=== PATIENT | male | born 1970 | race Caucasian/White ===

== ENCOUNTER 2022-11-06 03:12 | Emergency (ER) | payer OTHER, BC, SELFPAY ==
[2022-11-06 03:13] VITALS: BP 130/70; PULSE 103; RESP 18; TEMP 37; O2SAT 95
[2022-11-06 03:23] VITALS: BMI 36.9
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
[2022-11-06 03:43] LABS: Alanine Aminotransferase 42 U/L (12-78); Albumin Level 4.4 g/dl (3.5-5.0); Albumin/Globulin Ratio 1.4 (1.1-1.8); Alkaline Phosphatase 108 U/L (38-126); Aspartate Amino Transferase 35 U/L (17-59); Basophils # 0.1 K/mm3 (0-0.2); Bilirubin,Total 0.4 mg/dl (0.2-1.3); Blood Urea Nitrogen 10 mg/dl (9-20); Calcium 9.3 mg/dl (8.4-10.2); Carbon Dioxide 27 mmol/L (22.0-30.0); Chloride 105 mmol/L (98-107); Creatinine Clearance Estimated 161 mL/min (50-200); Estimated Glomerular Filt Rate 88 ml/min (>60); GFR (African American) 107 ML/MIN (>60); Globulin 3.1 g/dL (1.3-3.2); Glucose 172 mg/dl (74-100); Mean Platelet Volume 7.5 fl (7.4-10.4); POC Glucose,Bedside 170 (70-110); Potassium 3.6 mmoL/L (3.5-5.1); Red Cell Distribution Width 13.6 % (11.5-17.5); Total Protein,Serum 7.5 g/dl (6.3-8.2)
[2022-11-06 03:44] LABS: Anion Gap 11.6 mEq/L (5-15); Basophils % 0.7 % (0.1-2.0); Eosinophils # 0.3 K/mm3 (0.0-0.4); Eosinophils % 3.6 % (0.1-12.0); Hematocrit 47.5 % (42.0-52.0); Hemoglobin 16.2 g/dL (14.1-18.0); Lymphocytes # 1.5 K/mm3 (0.7-4.5); Lymphocytes % 16.9 % (10-50); Mean Corpuscular HGB Conc 34.1 g/dL (31.8-35.4); Mean Corpuscular Hemoglobin 32.5 pg (27.0-31.2); Mean Corpuscular Volume 95.2 fl (80-94); Monocytes # 0.6 K/mm3 (0.1-1.0); Monocytes % 6.5 % (1.7-9.3); Neutrophils # 6.4 K/mm3 (1.8-7.8); Neutrophils % 72.3 % (37.0-80.0); Platelet Count 192 K/mm3 (142-424); Red Blood Count 4.99 M/mm3 (4.60-6.20); Sodium 140 mmol/L (136-145); White Blood Count 8.9 K/mm3 (4.8-10.8)
--- NOTE | 2022-11-06 03:47 | PC.NURSE ---
verbal order accepted for 4 mg Morphine PRN
[2022-11-06 07:00] VITALS: BP 109/68; PULSE 86; RESP 18; TEMP 37; O2SAT 95
== END 2022-11-06 07:11 | disposition home or self-care (01) ==
PROVIDERS: Emergency Provider Emergency Medicine; PCP General Practice
DX: S39.012A Strain of muscle, fascia and tendon of lower back, initial encounter (principal); E11.9 Type 2 diabetes mellitus without complications; I10 Essential (primary) hypertension; V89.2XXA Person injured in unspecified motor-vehicle accident, traffic, initial encounter
CPT/HCPCS: 36415; 70450; 70496; 70498; 71045; 71275; 72125; 72128; 72131; 72170; 73030; 74174; 80053; 82962; 85025; 86850; 96374; 96375; 99285; Q9967

== ENCOUNTER 2024-06-28 17:14 | Emergency (ER) | payer BC, SELFPAY ==
[2024-06-28 17:15] VITALS: BP 138/89; PULSE 87; RESP 16; TEMP 36.8; O2SAT 96; BMI 34.2
--- NOTE | 2024-06-28 17:27 | ECG_ITS ---
APPROVED REPORT Exam: Resting ECG HR:78 bpm ECG Measurements Heart Rate 78 AXES IL 163 P 42 QRSd 104 QRS 121 QT 350 T 58 QTc 384 Conclusion SINUS RHYTHM POSSIBLE RIGHT VENTRICULAR HYPERTROPHY [SOME/ALL OF: PROMINENT R IN V1, LATE TRANSITION, RAD, YUSUF, SSS] ABNORMAL ECG Electronically signed by : CLAY SIMPSON, 06/28/2024 23:55:54
--- NOTE | 2024-06-28 17:40 | XR_ITS ---
PROCEDURE INFORMATION: Exam: XR Chest Exam date and time: 06/28/2024 5:37 PM Age: 53 years old Clinical indication: Shortness of breath and other: Palpitations; Additional info: Palpitations, SOA TECHNIQUE: Imaging protocol: Radiologic exam of the chest. Views: 2 views. COMPARISON: CT ANGIO CHEST 11/06/2022 4:37 AM FINDINGS: Lungs: No consolidation. Minimal left lower lung atelectasis and/or scarring. Pleural spaces: No pleural effusion. No pneumothorax. Heart/Mediastinum: No cardiomegaly. Bones/joints: Unremarkable. IMPRESSION: No acute pulmonary findings.
[2024-06-28 17:48] LABS: Basophils % 0.6 % (0.1-2.0); Eosinophils # 0.2 K/mm3 (0.0-0.4); Eosinophils % 3.1 % (0.1-12.0); Hematocrit 47.6 % (42.0-52.0); Hemoglobin 16.5 g/dL (14.1-18.0); Lymphocytes # 1.9 K/mm3 (0.7-4.5); Lymphocytes % 27.5 % (10-50); Mean Corpuscular HGB Conc 34.7 g/dL (31.8-35.4); Mean Corpuscular Hemoglobin 33.7 pg (27.0-31.2); Mean Corpuscular Volume 97.1 fl (80-94); Mean Platelet Volume 7.8 fl (7.4-10.4); Monocytes # 0.5 K/mm3 (0.1-1.0); Monocytes % 6.8 % (1.7-9.3); Neutrophils # 4.3 K/mm3 (1.8-7.8); Platelet Count 205 K/mm3 (142-424); Red Cell Distribution Width 13.8 % (11.5-17.5)
--- NOTE | 2024-06-28 17:52 | ED_ITS ---
Discharge Plan Disposition Patient Disposition: Home, Self-Care Condition: Good Prescriptions Prescriptions: No Action Ozempic 2 mg/dose (8 mg/3 mL) pen injector SQ Patient Comments: INJECT TWO (2) MG EVERY WEEK BY SUBCUTANEOUS ROUTE FOR 28 DAYS. Jardiance 10 mg tablet 10 mg PO DAILY Patient Comments: TAKE ONE TABLET BY MOUTH DAILY metformin 1,000 mg tablet 1,000 mg PO BID Patient Comments: TAKE ONE TABLET BY MOUTH TWICE A DAY WITH MEALS amlodipine 10 mg tablet 10 mg PO DAILY Patient Comments: TAKE ONE (1) TABLET BY MOUTH EVERY NIGHT AT BEDTIME atorvastatin 80 mg tablet 80 mg PO HS Patient Comments: TAKE ONE TABLET BY MOUTH DAILY IN THE EVENING lisinopril 40 mg tablet 40 mg PO DAILY Patient Comments: TAKE ONE (1) TABLET EVERY DAY BY ORAL ROUTE FOR 90 DAYS. meloxicam 15 mg tablet 15 mg PO DAILY Patient Comments: TAKE ONE (1) TABLET EVERY DAY BY ORAL ROUTE FOR 30 DAYS. tizanidine [Zanaflex] 4 mg capsule 4 mg PO Q8H PRN (Reason: muscle spasticity) Qty: 30 3RF prednisone 50 mg tablet 50 mg PO DAILY Qty: 3 0RF Referrals Follow up/Referrals: Chris Solorzano MD [Primary Care Provider] - See instructions Jann Fletcher MD [Staff Physician] - See instructions Activity Restrictions/Add. Instructions Additional Instructions/Restrictions: Please follow-up closely with your primary care provider as well as with cardiology. They may determine that you should wear a Holter monitor. Return to the emergency department for new or worsening symptoms. Clinical Impressions Clinical Impression: Heart palpitations Instructions Patient Instructions: DI for Atypical Chest Pain, DI for Palpitations Print Language Print Language: Croatian Discharge ED Provider: Serina Elizabeth General Adult HPI General Chief complaint: Arrhythmia/Palpitations Stated complaint: SOA,palpatations,headache Time Seen by Provider: 06/28/24 17:20 Mode of Arrival: Ambulatory Source of Information: Patient Limitations: No Limitations Description of Symptoms (Recalled from ER Triage Doc. by RN): States he was going to the dentist when his heart began to palpatate and feeling funny. Now states that he just has a headache and his heart is fluttering. Does state that he had a little bit of shortness of breath when this started as well. History of Present Illness HPI narrative: This patient is a 53-year-old male with a history of hypertension, hyperlipidemia, type 2 diabetes on Ozempic presenting to the emergency department for evaluation. He states that when he was at the dentist prior to arrival, he was sitting in the waiting room when his heart started racing. He was having palpitations and feeling very funny. He states he felt lightheaded and short of breath, and then he developed a headache. He states he still feels a heart fluttering, but the shortness of breath has improved. His headache is also going away. He denies any visual disturbance, unilateral numbness or tingling, weakness, chest pain, abdominal pain, nausea, vomiting, change in bowel movements, or other concerns associated with this. No calf pain or swelling. He also denies feeling anxious or stressed. He denies experiencing anything like this in the past. Related Data Home Medications ?Medication ?Instructions ?Recorded ?Confirmed amlodipine 10 mg tablet 10 mg PO DAILY 04/30/24 04/30/24 atorvastatin 80 mg tablet 80 mg PO HS 04/30/24 04/30/24 empagliflozin 10 mg tablet 10 mg PO DAILY 04/30/24 04/30/24 (Jardiance) lisinopril 40 mg tablet 40 mg PO DAILY 04/30/24 04/30/24 meloxicam 15 mg tablet 15 mg PO DAILY 04/30/24 04/30/24 metformin 1,000 mg tablet 1,000 mg PO BID 04/30/24 04/30/24 semaglutide 2 mg/dose (8 mg/3 mL) mg SQ 04/30/24 04/30/24 subcutaneous pen injector (Ozempic) Previous Rx's ?Medication ?Instructions ?Recorded tizanidine 4 mg capsule (Zanaflex) 4 mg PO Q8H PRN muscle spasticity 05/01/24 #30 caps prednisone 50 mg tablet 50 mg PO DAILY #3 tabs 06/04/24 Allergies Allergy/AdvReac Type Severity Reaction Status Date / Time No Known Allergies Allergy Verified 04/30/24 15:34 [facility] Disclaimer: The information contained in this section may have been updated after the patient was seen, as this information can be updated by other users. Medical History Diabetes mellitus Hyperlipidemia Hypertension Surgical History H/O: vasectomy Social History Smoking Status: Never smoker alcohol intake: never current occupational status: employed Travel in the last 8 weeks: None ROS Obtained: Yes All systems reviewed & no additional complaints except as documented Physical Exam General General appearance: alert and in no apparent distress Head Head exam: atraumatic and normocephalic Eye Eye exam: Present normal appearance, PERRL and EOMI ENT ENT exam: Present normal exam, normal oropharynx, mucous membranes moist and normal external ear exam Neck Neck exam: Present normal inspection, full ROM and trachea midline; Absent tenderness Chest Chest inspection: Present normal inspection and symmetric chest wall rise; Absent tenderness Respiratory Respiratory exam: Present normal lung sounds bilaterally; Absent respiratory distress, wheezes, stridor or accessory muscle use Cardiovascular Cardiovascular exam: Present regular rate and normal rhythm Abdominal Exam Abdominal exam: Present soft; Absent distention, tenderness or guarding Extremities Exam Extremities exam: Present normal inspection, full ROM and normal capillary refill; Absent tenderness or edema Back Exam Back exam: Present normal inspection and full ROM; Absent tenderness Neurological Exam Neurological exam: Present alert, oriented X3, CN II-XII intact and normal gait; Absent motor sensory deficit Psychiatric Psychiatric exam: Present normal affect and normal mood Skin Skin exam: Present warm and dry Medical Decision Making Medical Records Medical records reviewed: Yes I reviewed the patient's medical records. Jorge Inquiry Pt receiving controlled substance: No Vital Signs: 06/28/24 17:15 06/28/24 18:00 06/28/24 18:30 Temperature 98.2 F Temperature Source Oral Pulse Rate 82 78 Pulse Rate [Radial] 87 Respiratory Rate 16 21 15 Blood Pressure 133/82 128/84 Blood Pressure [Right Arm] 138/89 Blood Pressure Mean 99 99 Blood Pressure Mean [Right Arm] 105 Blood Pressure Source Blood Pressure Source [Right Arm] Automatic Cuff Blood Pressure Position Blood Pressure Position [Right Arm] Sitting 02 Sat by Pulse Oximetry 96 95 97 Oxygen Delivery Method Room Air 06/28/24 19:57 06/28/24 20:30 Temperature 98.0 F Temperature Source Oral Pulse Rate 84 87 Pulse Rate [Radial] Respiratory Rate 20 15 Blood Pressure 139/91 H 155/94 H Blood Pressure [Right Arm] Blood Pressure Mean Blood Pressure Mean [Right Arm] Blood Pressure Source Automatic Cuff Automatic Cuff Blood Pressure Source [Right Arm] Blood Pressure Position Supine Sitting Blood Pressure Position [Right Arm] 02 Sat by Pulse Oximetry 97 Oxygen Delivery Method Room Air Room Air Lab Data Lab results reviewed: Yes I reviewed the patient's lab results. Lab Results 06/28/24 17:23: WBC 7.0, RBC 4.90, Hgb 16.5, Hct 47.6, MCV 97.1 H, MCH 33.7 H, MCHC 34.7, RDW 13.8, Plt Count 205, MPV 7.8, Neut % (Auto) 62.0, Lymph % (Auto) 27.5, [place] % (Auto) 6.8, Eos % (Auto) 3.1, Baso % (Auto) 0.6, Neut # (Auto) 4.3, Lymph # (Auto) 1.9, [place] # (Auto) 0.5, Eos # (Auto) 0.2, Baso # (Auto) 0.0, D- Dimer 0.34, Sodium 142, Potassium 3.6, Chloride 104, Carbon Dioxide 29, Anion Gap 12.6, BUN 15, Creatinine 0.90, Estimated Creat Clear 147, Estimated GFR 88, Est GFR ( Amer) 106, Glucose 113 H, Calcium 9.3, Magnesium 2.1, Total Bilirubin 0.4, AST 47, ALT 57, Alkaline Phosphatase 61, Troponin I < 0.01, Total Protein 7.4, Albumin 4.2, Globulin 3.2, Albumin/Globulin Ratio 1.3, TSH 1.40, Thyroxine (T4) 9.5 06/28/24 19:35: Troponin I < 0.01 06/28/24 17:23 06/28/24 17:23 Orders (Tests/Meds): ED MEDICATIONS Discontinued Medications Generic Name Dose Route Start Last Admin Trade Name Freq PRN Reason Stop Dose Admin Acetaminophen 1,000 mg 06/28/24 17:42 06/28/24 17:56 Acetaminophen 500mg Tab PO 06/28/24 17:43 1,000 mg ONCE ONE Administration Lactated Ringer's 1,000 mls @ 999 mls/hr 06/28/24 17:42 06/28/24 17:56 Lactated Ringer's 1000 Ml Bag IV 06/28/24 18:42 999 mls/hr .Q1H1M ONE Administration Ketorolac Tromethamine 15 mg 06/28/24 17:42 06/28/24 17:56 Ketorolac 30mg/Ml Vial IV 06/28/24 17:43 15 mg ONCE ONE Administration ORDERS Category Date Time Status CXR 2 view (NOT portable) [XR chest 2V] Stat Exams 06/28/24 17:40 Completed CBC w/Auto Diff [Complete Blood Count Auto Diff] Stat Lab 06/28/24 17:23 Completed CMP [Comprehensive Metabolic Panel] Stat Lab 06/28/24 17:23 Completed D-Dimer Stat Lab 06/28/24 17:23 Completed MAG [Magnesium] Stat Lab 06/28/24 17:23 Completed T4 (Thyroxine) Stat Lab 06/28/24 17:23 Completed TSH [Thyroid Stimulating Hormone] Stat Lab 06/28/24 17:23 Completed Trop I [Troponin I] Stat Lab 06/28/24 17:23 Completed Troponin I Q3H Lab 06/28/24 19:35 Completed ECG Data Tracing #1: I reviewed this ECG and interpreted as documented below: Normal sinus rhythm with a ventricular rate of [address] changes concerning for ischemia. Normal axis and intervals. ECG initial impression date: 06/28/24 ECG initial impression time: 17:30 Medical Decision Narrative: In summary, this patient is a 53-year-old male presenting to the Emergency Department for evaluation of palpitations, lightheadedness, shortness of breath, and headache started suddenly while at the dentist. Differential diagnoses considered include but are not limited to ACS, dysrhythmia, electrolyte derangements, anxiety, hypothyroid. Ruling out the most morbid conditions drove assessment. It should be noted patient's history includes hypertension, hyperlipidemia, and type 2 diabetes which may or may not be at goal therapy. This complicates all aspects of care by increasing patient's risk for morbidity. On exam, the patient is lying in bed in no acute distress with reassuring vital signs and cardiac telemetry. EKG obtained is reassuring. Cardiopulmonary exam is reassuring, and he is neurologically intact without focal deficits.Workup included CBC, CMP, troponin, TSH, T4, BNP, D-dimer, chest x-ray, EKG. He was given a bolus of IV fluids as well as IV Toradol and oral Tylenol for his headache. I independently interpreted x-ray prior to the radiologist read and noted no acute focal consolidation or pneumothorax. Please see their read for final interpretation. Labs were obtained that demonstrated negative D-dimer, negative troponin, no other acutely concerning abnormalities. At 1845, patient was placed in ED observation status pending second troponin to determine whether or not the patient would be appropriate for discharge versus admission. The patient was provided serial reevaluations and cardiac monitoring while awaiting ultimate disposition. On multiple subsequent reassessments, the patient is resting comfortably with normal vital signs and cardiac telemetry. Cardiopulmonary exam is reassuring. Second troponin came back negative. At 2030 based on reassuring workup and exam, I determined the patient was appropriate for discharge home with close outpatient follow-up. This was after 1 hour and 45 minutes in ED observation. I advised the patient that he should follow-up very closely with his primary care provider as well as cardiology and given strict return precautions. He expressed understanding and agreement. He was discharged after all questions were answered Critical Care Critical Care Time Critical Care Time: No
[2024-06-28 17:55] LABS: Alanine Aminotransferase 57 U/L (12-78); Albumin Level 4.2 g/dl (3.5-5.0); Albumin/Globulin Ratio 1.3 (1.1-1.8); Alkaline Phosphatase 61 U/L (38-126); Anion Gap 12.6 mEq/L (5-15); Aspartate Amino Transferase 47 U/L (17-59); Bilirubin,Total 0.4 mg/dl (0.2-1.3); Blood Urea Nitrogen 15 mg/dl (9-20); Calcium 9.3 mg/dl (8.4-10.2); Carbon Dioxide 29 mmol/L (22.0-30.0); Chloride 104 mmol/L (98-107); Creatinine Clearance Estimated 147 mL/min (50-200); Estimated Glomerular Filt Rate 88 ml/min (>60); GFR (African American) 106 ML/MIN (>60); Globulin 3.2 g/dL (1.3-3.2); Glucose 113 mg/dl (74-100); Magnesium 2.1 mg/dl (1.6-2.3); Potassium 3.6 mmoL/L (3.5-5.1); Sodium 142 mmol/L (136-145); Total Protein,Serum 7.4 g/dl (6.3-8.2)
[2024-06-28] MEDS: ACETAMINOPHEN 500MG TAB 1000 MG PO (17:56)
[2024-06-28] MEDS: KETOROLAC 30MG/ML VIAL 15 MG IV (17:56)
[2024-06-28] MEDS: LACTATED RINGERS 1000ML 1,000 ML 999 ML IV (17:56)
[2024-06-28 18:00] VITALS: BP 133/82; PULSE 82; RESP 21; O2SAT 95
[2024-06-28 18:00] LABS: D-Dimer 0.34 ug/mL (0.0-0.5)
[2024-06-28 18:14] LABS: T4 (Thyroxine) 9.5 ug/dl (5.53-11.0)
[2024-06-28 18:20] LABS: Troponin I < 0.01 ng/ml (0.00-0.034)
[2024-06-28 18:30] VITALS: BP 128/84; PULSE 78; RESP 15; O2SAT 97
[2024-06-28 19:57] VITALS: BP 139/91; PULSE 84; RESP 20; O2SAT 97
[2024-06-28 20:21] LABS: Troponin I < 0.01 ng/ml (0.00-0.034)
[2024-06-28 20:30] VITALS: BP 155/94; PULSE 87; RESP 15; TEMP 36.7; O2SAT 97
== END 2024-06-28 20:36 | disposition home or self-care (01) ==
PROVIDERS: Emergency Provider Emergency Medicine; PCP Family Medicine
DX: R00.2 Palpitations (principal); R06.02 Shortness of breath; R42 Dizziness and giddiness; E11.9 Type 2 diabetes mellitus without complications; I10 Essential (primary) hypertension; E78.5 Hyperlipidemia, unspecified; Z79.84 Long term (current) use of oral hypoglycemic drugs; Z79.85 Long-term (current) use of injectable non-insulin antidiabetic drugs
CPT/HCPCS: 71046; 80050; 80053; 83735; 84436; 84443; 84484; 85025; 85378; 93005; 96361; 96374; 99284; J1885; J7120

== ENCOUNTER 2024-06-29 17:36 | Outpatient (CLI) | payer BC, SELFPAY | END 2024-06-29 23:59 | disposition home or self-care (01) | LOC: RT 17:39 | PROVIDERS: PCP Family Medicine; Visit Provider Nurse Practitioner Family | DX: R00.2 Palpitations (principal) | CPT/HCPCS: 93225; 93227 ==

== ENCOUNTER 2024-11-14 16:00 | Outpatient (RCR) | payer BC, SELFPAY | END 2024-11-14 23:59 | disposition home or self-care (01) | LOC: PT 16:00 | PROVIDERS: PCP Family Medicine; Visit Provider Nurse Practitioner | DX: M54.12 Radiculopathy, cervical region (principal) | CPT/HCPCS: 97014; 97110; 97163; 97530; G0283 ==